=== PATIENT | male | born 1970 | race Caucasian/White ===

== ENCOUNTER 2017-02-28 13:18 | Emergency (ER) | payer BC ==
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
== END 2017-02-28 13:58 | disposition disaster alternative care site (69) ==
LOC: GMED 13:18
DX: J32.9 Chronic sinusitis, unspecified (principal)
CPT/HCPCS: J1885; J2550